=== PATIENT | female | born 1980 | race Caucasian/White ===

== ENCOUNTER 2016-07-17 00:22 | Emergency (ER) | payer MEDICAID ==
[2016-07-17 00:49] VITALS: BMI 25.0
--- NOTE | 2016-07-17 00:58 | ED PDOC ---
Arrival/HPI - General Time Seen by Provider: 07/17/16 00:40 Historian: Patient - History of Present Illness Narrative History of Present Illness (Text): 07/17/16 00:58 Emiliano Leroy is a 36 year old female who presents to the Emergency department complaining of intermittent chest pain, worsened with movement after waking up tonight. Patient states symptoms have improved but are still present. Patient denies any fever, chills, shortness of breath, nausea, vomiting, diarrhea, urinary symptoms, back pain, neck pain, headache, dizziness, or any other complaints. Time/Duration: Other (tonight) Symptom Onset: Gradual Symptom Course: Unchanged Activities at Onset: Rest, Light Context: Home Past Medical History - Provider Review Nursing Documentation Reviewed: Yes - Infectious Disease Hx of Infectious Diseases: None - Psychiatric Hx Substance Use: Yes - Surgical History Hx Section: Yes Hx Cholecystectomy: Yes Hx Dilation and Curettage: Yes Hx Tonsillectomy: Yes Family/Social History - Physician Review Nursing Documentation Reviewed: Yes Family/Social History: No Known Family HX Smoking Status: marijuana Hx Alcohol Use: No Hx Substance Use: Yes Substance used: marijuana Allergies/Home Meds Allergies/Adverse Reactions: Allergies No Known Allergies Allergy (Verified 02/01/16 13:14) Home Medications: Home Meds Medication Instructions Recorded Confirmed No Known Home Med 02/01/16 02/01/16 Review of Systems - Physician Review All systems were reviewed & negative as marked: Yes - Review of Systems Constitutional: Normal. absent: Fevers Eyes: Normal ENT: Normal Respiratory: Normal. absent: SOB, Cough Cardiovascular: Chest Pain Gastrointestinal: Normal. absent: Abdominal Pain, Diarrhea, Nausea Genitourinary Female: Normal. absent: Dysuria, Frequency, Hematuria, Urine Output Changes Musculoskeletal: Normal. absent: Back Pain, Neck Pain Skin: Normal. absent: Rash Neurological: Normal. absent: Headache, Dizziness Endocrine: Normal Hemo/Lymphatic: Normal Psychiatric: Normal Physical Exam Vital Signs Reviewed: Yes Vital Signs Temp Pulse Resp BP Pulse Ox 07/17/16 02:40 79 16 120/80 100 07/17/16 01:40 80 18 125/82 100 07/17/16 01:04 98.3 F 89 17 123/71 99 Temperature: Afebrile Blood Pressure: Normal Pulse: Regular Respiratory Rate: Normal Appearance: Positive for: Well-Appearing, Non-Toxic, Comfortable Pain Distress: None Mental Status: Positive for: Alert and Oriented X 3 - Systems Exam Head: Present: Atraumatic, Normocephalic Pupils: Present: PERRL Extroacular Muscles: Present: EOMI Conjunctiva: Present: Normal Mouth: Present: Moist Mucous Membranes Neck: Present: Normal Range of Motion Respiratory/Chest: Present: Clear to Auscultation, Good Air Exchange. No: Respiratory Distress, Accessory Muscle Use Cardiovascular: Present: Regular Rate and Rhythm, Normal S1, S2. No: Murmurs Abdomen: Present: Normal Bowel Sounds. No: Tenderness, Distention, Peritoneal Signs Back: Present: Normal Inspection Upper Extremity: Present: Normal Inspection. No: Cyanosis, Edema Lower Extremity: Present: Normal Inspection. No: Edema Neurological: Present: GCS=15, CN II-XII Intact, Speech Normal Skin: Present: Warm, Dry, Normal Color. No: Rashes Psychiatric: Present: Alert, Oriented x 3, Normal Insight, Normal Concentration Medical Decision Making ED Course and Treatment: 07/17/16 00:58 Impression: 36 year old female c/o chest pain tonight. Plan: -- EKG -- Chest X-ray -- Labs, cardiac enzynesm -- Urinalysis -- Reassess and disposition Progress Notes: Reviewed EKG, NSR at 84. No ST-segment elevations or depressions, no T-wave inversions, normal intervals. 07/17/16 01:56 Reviewed radiology, Chest X-ray shows no active disease. Labs within normal limits. 07/17/16 02:50 On re-evaluation, the patient feels better and is in no acute distress. I have discussed the results and plan with the patient, who expresses understanding. Patient in agreement with plan to discharged home. Patient is stable for discharge. Patient was instructed to follow up with physician/clinic in 1-2 days or return if symptoms worsen or new concerning symptoms arise. Re-evaluation Time: 02:51 Reassessment Condition: Re-examined, Improved - Lab Interpretations Lab Results: 07/17/16 01:30 07/17/16 01:30 Lab Results 07/17/16 01:30: Sodium 140, Potassium 3.9, Chloride 104, Carbon Dioxide 27, Anion Gap 13, BUN 18, Creatinine 0.7, Est GFR ( Amer) > 60, Est GFR (Non- Af Amer) > 60, Random Glucose 89, Calcium 9.6, Magnesium 2.2, Total Bilirubin 0.6, AST 18, ALT 27, Alkaline Phosphatase 54, Lactate Dehydrogenase 356, Total Creatine Kinase 47, Troponin I < 0.01, Total Protein 7.3, Albumin 4.0, Globulin 3.3, Albumin/Globulin Ratio 1.2 07/17/16 01:30: WBC 5.2, RBC 4.56, Hgb 13.3, Hct 38.9, MCV 85.3, MCH 29.2, MCHC 34.2, RDW 12.8, Plt Count 230, MPV 9.8, Gran % 51.4, Lymph % (Auto) 38.9 H, [place] % (Auto) 8.3 H, Eos % (Auto) 1.2 L, Baso % (Auto) 0.2, Gran # 2.66, Lymph # 2.0, [place] # 0.4, Eos # 0.1, Baso # 0.01 07/17/16 01:25: Urine Color Yellow, Urine Appearance Clear, Urine pH 6.0, Ur Specific [place] >= 1.030, Urine Protein Negative, Urine Glucose (UA) Negative, Urine Ketones Negative, Urine Blood Negative, Urine Nitrate Negative, Urine Bilirubin Negative, Urine Urobilinogen 0.2, Ur Leukocyte Esterase Negative I have reviewed the lab results: Yes - RAD Interpretation Radiology Orders: 07/17/16 01:05 CHEST PORTABLE [RAD] Stat Absorption Operator: ED Physician - EKG Interpretation Interpreted by ED Physician: Yes Type: 12 lead EKG NIKOS Risk Score for UA/NSTEMI - NIKOS Risk Score Age > 64: NO 3 or more CAD Risk Factors: NO Known CAD (Stenosis greater than 50%): NO Aspirin use in past 7 days: NO Severe Angina: NO EKG ST changes greater than 0.5mm: NO Positive Cardiac Marker: NO NIKOS Score: 0 % risk at 14 days of: all cause mortality, new or recurrent HI, or severe recurrent ischemia requiring urgen revascularization: 5% - Scribe Statement The provider has reviewed the documentation as recorded by the Scribgenevieve Zapata All medical record entries made by the Scribe were at my direction and personally dictated by me. I have reviewed the chart and agree that the record accurately reflects my personal performance of the history, physical exam, medical decision making, and the department course for this patient. I have also personally directed, reviewed, and agree with the discharge instructions and disposition. Disposition/Present on Arrival - Present on Arrival Any Indicators Present on Arrival: No History of DVT/PE: No History of Uncontrolled Diabetes: No Urinary Catheter: No History Surgical Site Infection Following: None - Disposition Have Diagnosis and Disposition been Completed?: Yes Diagnosis: Chest pain Disposition: HOME/ ROUTINE Disposition Time: 02:50 Condition: GOOD Discharge Instructions (ExitCare): Chest Pain (ED) Referrals: PCP,NO [Primary Care Provider] - Follow up with primary
[2016-07-17 01:05] VITALS: TEMP 98.3
[2016-07-17 01:44] LABS: ADD MANUAL DIFF? NO
[2016-07-17 01:55] LABS: ALB/GLOB RATIO 1.2 (1.1-1.8); ALKALINE PHOSPHATASE 54 U/L (38-133); ALT/SGPT 27 U/L (7-56); AST/SGOT 18 U/L (15-39); BILIRUBIN,TOTAL 0.6 mg/dL (0.2-1.3); BLOOD UREA NITROGEN 18 mg/dL (7-21); CALCIUM 9.6 mg/dL (8.4-10.5); CARBON DIOXIDE 27 mmol/L (21-33); CHLORIDE 104 mmol/L (98-107); GFR AFRICAN-AMERICAN > 60; GLUCOSE,RANDOM 89 mg/dL (70-110); MAGNESIUM 2.2 mg/dL (1.7-2.2); POTASSIUM 3.9 mmol/L (3.6-5.0); SODIUM 140 mmol/L (132-148); TOTAL PROTEIN 7.3 g/dL (5.8-8.3)
[2016-07-17 01:58] LABS: BASO # 0.01 K/mm3 (0.0-2.0); BASO % 0.2 % (0.0-3.0); EOS # 0.1 (0.0-0.7); EOS % 1.2 % (1.5-5.0); GRAN # 2.66 (1.4-6.5); GRAN % 51.4 % (50.0-68.0); HEMATOCRIT 38.9 % (36.0-48.0); LYMPH % 38.9 % (22.0-35.0); MEAN CELL VOLUME 85.3 fL (80.0-105.0); MEAN CORPUSCULAR HEMOGLOBIN 29.2 pg (25.0-35.0); MEAN CORPUSCULAR HGB CONC 34.2 g/dl (31.0-37.0); MEAN PLATELET VOLUME 9.8 fl (7.0-11.0); MONO # 0.4 (0.1-0.6); MONO % 8.3 % (1.0-6.0); PLATELET COUNT 230 10^3/uL (120.0-450.0); RED CELL DISTRIBUTION WIDTH 12.8 % (11.5-14.5); WHITE BLOOD COUNT 5.2 10^3/ul (4.5-11.0)
[2016-07-17 02:10] LABS: TROPONIN I < 0.01 ng/mL
[2016-07-17 02:24] LABS: URINE BILIRUBIN NEGATIVE (NEGATIVE); URINE BLOOD NEGATIVE (NEGATIVE); URINE GLUCOSE (UA) NEGATIVE (NEGATIVE); URINE KETONE NEGATIVE (NEGATIVE); URINE LEUKOCYTE ESTERASE NEGATIVE Leu/uL (NEGATIVE); URINE PROTEIN NEGATIVE mg/dL (<30 mg/dL); URINE UROBILINOGEN 0.2 E.U./dL (<1 E.U./dL)
[2016-07-17 02:28] LABS: URINE APPEARANCE CLEAR (CLEAR); URINE COLOR YELLOW (YELLOW)
[2016-07-17 03:14] VITALS: O2SAT 100
[2016-07-17 03:15] VITALS: BP 120/80; PULSE 79; RESP 16
--- NOTE | 2016-07-17 09:52 | RAD ---
HISTORY: cp COMPARISON: No prior. FINDINGS: LUNGS: No active pulmonary disease. PLEURA: No significant pleural effusion identified, no pneumothorax apparent. CARDIOVASCULAR: Normal. OSSEOUS STRUCTURES: No significant abnormalities. VISUALIZED UPPER ABDOMEN: Normal. OTHER FINDINGS: Bilateral nipple rings. IMPRESSION: No active disease.
--- NOTE | 2016-07-17 22:09 | CARD ---
APPROVED REPORT EKG Measurement Heart [id number] <Conclusion> Normal sinus rhythm Normal ECG
== END 2016-07-17 03:19 | disposition home or self-care (01) ==
LOC: ED 00:22
DX: R07.9 Chest pain, unspecified (principal)

== ENCOUNTER 2016-11-19 06:15 | Emergency (ER) | payer MEDICAID ==
[2016-11-19 06:15] VITALS: BMI 25.0
[2016-11-19 06:27] VITALS: TEMP 97.4
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
[2016-11-19 07:24] VITALS: RESP 16
[2016-11-19 07:48] VITALS: BP 130/81; PULSE 90; O2SAT 98
== END 2016-11-19 07:48 | disposition home or self-care (01) ==
LOC: ED 06:15
DX: S39.012A Strain of muscle, fascia and tendon of lower back, initial encounter (principal); S80.00XA Contusion of unspecified knee, initial encounter; S60.229A Contusion of unspecified hand, initial encounter; W18.00XA Striking against unspecified object with subsequent fall, initial encounter; Y99.0 Civilian activity done for income or pay

== ENCOUNTER 2018-01-15 10:52 | Emergency (ER) | payer MEDICAID ==
[2018-01-15 10:53] VITALS: BMI 25.0
[2018-01-15 11:33] VITALS: TEMP 98.4
--- NOTE | 2018-01-15 12:46 | ED PDOC ---
Arrival/HPI - General Chief Complaint: Trauma Time Seen by Provider: 01/15/18 12:22 Historian: Patient - History of Present Illness Narrative History of Present Illness (Text): 01/15/18 12:23 37 year old female, with no significant past medical history, presents to the Emergency department complaining of bilateral upper arm discomfort, lower back pain and left upper back pain s/p fall prior to arrival. Patient informs walking up the stairs when she slipped down 4-5 steps and falling on back and buttocks sustaining injury to posterior aspect of bilateral upper arms. Patient denies head injury or any loss of consciousness. Patient denies any fevers, chills, headache, dizziness, chest pain, shortness of breath, dyspnea on exertion, cough, abdominal pain, nausea, vomiting, diarrhea, neck pain, bladder or bowel incontinence, numbness/tingling to her extremities, weakness, saddle anesthesia or any other complaints. Time/Duration: Prior to Arrival Symptom Onset: Sudden Symptom Course: Unchanged Activities at Onset: Light Context: Home Past Medical History - Provider Review Nursing Documentation Reviewed: Yes - Infectious Disease Hx of Infectious Diseases: None - Reproductive Menopause: No - Cardiac Hx Cardiac Disorders: No - Pulmonary Hx Respiratory Disorders: Yes Hx Asthma: Yes - Neurological Hx Neurological Disorder: No - HEENT Hx HEENT Disorder: No - Renal Hx Renal Disorder: No - Endocrine/Metabolic Hx Endocrine Disorders: No - Hematological/Oncological Hx Blood Disorders: No - Integumentary Hx Dermatological Disorder: No - Musculoskeletal/Rheumatological Hx Musculoskeletal Disorders: No - Gastrointestinal Hx Gastrointestinal Disorders: No - Genitourinary/Gynecological Hx Genitourinary Disorders: No - Psychiatric Hx Psychophysiologic Disorder: No Hx Substance Use: Yes - Surgical History Hx Section: Yes Hx Cholecystectomy: Yes Hx Dilation and Curettage: Yes Hx Tonsillectomy: Yes - Anesthesia Hx Anesthesia: Yes Hx Anesthesia Reactions: No Hx Malignant Hyperthermia: No Family/Social History - Physician Review Nursing Documentation Reviewed: Yes Family/Social History: Unknown Family HX Smoking Status: Never Smoked Hx Alcohol Use: No Hx Substance Use: Yes Substance used: marijuana Allergies/Home Meds Allergies/Adverse Reactions: Allergies No Known Allergies Allergy (Verified 02/01/16 13:14) Review of Systems - Physician Review All systems were reviewed & negative as marked: Yes - Review of Systems Constitutional: absent: Fevers Respiratory: absent: SOB, Cough Cardiovascular: absent: Chest Pain, NAPIER Gastrointestinal: absent: Abdominal Pain, Diarrhea, Nausea, Vomiting Genitourinary Female: absent: Dysuria, Urine Output Changes Musculoskeletal: Arthralgias (bilateral upper arm discomfort ), Back Pain. absent: Neck Pain Skin: absent: Rash Neurological: absent: Headache, Dizziness Physical Exam Vital Signs Reviewed: Yes Vital Signs Temp Pulse Resp BP Pulse Ox 01/15/18 11:15 98.4 F 81 18 129/69 98 Temperature: Afebrile Blood Pressure: Normal Pulse: Regular Respiratory Rate: Normal Appearance: Positive for: Well-Appearing, Non-Toxic, Comfortable Pain Distress: None Mental Status: Positive for: Alert and Oriented X 3 - Systems Exam Head: Present: Atraumatic, Normocephalic Pupils: Present: PERRL Extroacular Muscles: Present: EOMI Conjunctiva: Present: Normal Mouth: Present: Moist Mucous Membranes Neck: Present: Normal Range of Motion. No: MIDLINE TENDERNESS, Paraspinal Tenderness Respiratory/Chest: Present: Clear to Auscultation, Good Air Exchange, Other (No step-offs or crepitus. Mild left sided trapezius tenderss without any edema or erythema. ). No: Respiratory Distress, Accessory Muscle Use Cardiovascular: Present: Regular Rate and Rhythm, Normal S1, S2. No: Murmurs Abdomen: Present: Other (No ecchymosis). No: Tenderness, Distention, Peritoneal Signs Back: Present: Paraspinal Tenderness (minimal bilateral paraspinal tenderness to lumbar aspect. No bony tenderness.), Other (No erythema or ecchymosis.). No: Midline Tenderness Upper Extremity: Present: Normal ROM, NORMAL PULSES, Tenderness (Tenderness to posterior aspect to bilateral humerus. No ecchymosis or erythema to right humerus. Ecchymosis noted posteriorly from left shoulder and left elbow. No elbow tenderness. ), Neurovascularly Intact, Capillary Refill < 2s. No: Cyanosis, Edema, Erythema Lower Extremity: Present: Normal Inspection, NORMAL PULSES, Normal ROM, Neurovascularly Intact. No: Edema Neurological: Present: GCS=15, Speech Normal Skin: Present: Warm, Dry, Normal Color. No: Rashes Psychiatric: Present: Alert, Oriented x 3 Medical Decision Making ED Course and Treatment: 01/15/18 12:23 Impression: 37 year old female presents to the Emergency department complaining of bilateral arm and back pain s/p fall. Plan: -- Chest X-ray -- Toradol -- X-ray of Left humerus -- X-ray of right humerus -- X-ray of Lumbar spine -- Reassess and disposition Prior Visits: Notes and results from previous visits were reviewed. Progress Notes: 01/15/18 14:08 X-rays of the left and right humerus reveal no fracture Chest x-ray shows no infiltrate no effusion no cardiomegaly no pneumothorax X-rays of the lumbar spines and no fracture Patient reassessment: Patient feeling better after medications. I discussed all results in depth with the patient and advised follow-up with the primary care physician orthopedist and with Dr. Ricks. I've advised immediate return if symptoms worsen persist or if new concerning symptoms develop Patient verbalizes understanding of discharge instructions and need for immediate followup. all aspects of this case were discussed the attending of record. Impression: Back pain, arm pain, contusion arm status post fall Motrin every 6 hours as needed for pain Flexeril one tablet every 8 hours as needed for muscle spasms: May cause drowsiness Followup with the orthopedist within the next 2 days Followup with primary care physician within the next 2 days Return if symptoms worsen persist or if new symptoms develop Reassessment Condition: Re-examined, Improved - RAD Interpretation Radiology Orders: 01/15/18 12:23 CHEST TWO VIEWS (PA/LAT) [RAD] Stat HUMERUS LEFT [RAD] Stat HUMERUS RIGHT [RAD] Stat 01/15/18 12:24 LS SPINE WITH OBL > 18 YRS OLD [RAD] Stat - Medication Orders Current Medication Orders: Discontinued Medications Ketorolac Tromethamine (Toradol) 60 mg IM STAT STA Stop: 01/15/18 12:25 Last Admin: 01/15/18 12:37 Dose: 60 mg MAR Pain Assessment Document 01/15/18 12:37 SF (Rec: 01/15/18 12:37 [id number] Pain Reassessment Is this a pain reassessment? Yes Sleep Is patient sleeping during reassessment? No Presence of Pain Presence of Pain Yes IM Administration Charges Document 01/15/18 12:37 SF (Rec: 01/15/18 12:37 [id number] Injection Site MAR Injection Site Left Deltoid Charges for Administration # of IM Administrations 1 - Scribe Statement The provider has reviewed the documentation as recorded by the Scribgenevieve Ruiz. All medical record entries made by the Ositoibgenevieve were at my direction and personally dictated by me. I have reviewed the chart and agree that the record accurately reflects my personal performance of the history, physical exam, medical decision making, and the department course for this patient. I have also personally directed, reviewed, and agree with the discharge instructions and disposition. Disposition/Present on Arrival - Present on Arrival Any Indicators Present on Arrival: No History of DVT/PE: No History of Uncontrolled Diabetes: No Urinary Catheter: No History of Decub. Ulcer: No History Surgical Site Infection Following: None - Disposition Have Diagnosis and Disposition been Completed?: Yes Diagnosis: Back pain, Arm pain, Contusion, arm, upper Disposition Time: 13:20 Patient Plan: Discharge Condition: GOOD Discharge Instructions (ExitCare): Low Back Pain (DC), Muscle and Bone Pain (DC), Contusion (DC) Additional Instructions: Motrin every 6 hours as needed for pain Flexeril one tablet every 8 hours as needed for muscle spasms: May cause drowsiness Followup with the orthopedist within the next 2 days Followup with primary care physician within the next 2 days Return if symptoms worsen persist or if new symptoms develop Prescriptions: Cyclobenzaprine [Cyclobenzaprine HCl] 10 mg PO Q8 #10 tab Ibuprofen [Motrin] 600 mg PO Q6H PRN #20 tab PRN Reason: pain/fever reduction Referrals: Enrique Guerra DO [Staff Provider] - Follow up with primary Leoncio Ricks MD [Staff Provider] - Follow up with primary [employer] [facility] [Outside] - Follow up with primary Forms: [facility] [facility] ([place]), WORK NOTE
[2018-01-15 13:29] VITALS: O2SAT 100
[2018-01-15 14:07] VITALS: BP 126/73; PULSE 75; RESP 17
--- NOTE | 2018-01-15 14:22 | RAD ---
Date of service: 01/15/2018 HISTORY: fall, left sided upper back pain COMPARISON: 07/17/2016 TECHNIQUE: Chest PA and lateral FINDINGS: LUNGS: No active pulmonary disease. PLEURA: No significant pleural effusion identified. No pneumothorax apparent. CARDIOVASCULAR: No aortic atherosclerotic calcification present. Normal cardiac size. No pulmonary vascular congestion. OSSEOUS STRUCTURES: No significant abnormalities. VISUALIZED UPPER ABDOMEN: Normal. OTHER FINDINGS: None. IMPRESSION: No active disease.
--- NOTE | 2018-01-15 14:27 | RAD ---
PROCEDURE: Radiographs of the right humerus. HISTORY: fall, arm pain COMPARISON: None. FINDINGS: BONES: Normal. No fracture or focal lesion. SOFT TISSUES: Normal. OTHER FINDINGS: None. IMPRESSION: Normal radiographs of right humerus.
--- NOTE | 2018-01-15 14:27 | RAD ---
PROCEDURE: Radiographs of the left humerus. HISTORY: fall, arm pain COMPARISON: None. FINDINGS: BONES: Normal. No fracture or focal lesion. SOFT TISSUES: Normal. OTHER FINDINGS: None. IMPRESSION: Normal radiographs of left humerus.
--- NOTE | 2018-01-15 14:28 | RAD ---
Date of service: 01/15/2018 PROCEDURE: Radiographs of the Lumbar Spine. HISTORY: back pain s/p fall COMPARISON: No prior. FINDINGS: BONES: Normal alignment. No listhesis. No fracture. DISC SPACES: Unremarkable. OTHER FINDINGS: None. IMPRESSION: Unremarkable radiographs of the lumbar spine.
== END 2018-01-15 14:07 | disposition home or self-care (01) ==
LOC: ED 10:52
DX: S40.022A Contusion of left upper arm, initial encounter (principal); W10.9XXA Fall (on) (from) unspecified stairs and steps, initial encounter; Y92.9 Unspecified place or not applicable; M79.602 Pain in left arm; M79.601 Pain in right arm; M54.5 Low back pain
CPT/HCPCS: 71046; 72110; 73060; 96372; 99285; J1885